=== PATIENT | male | born 1940 | race Hispanic/Latino ===

== ENCOUNTER 2016-12-05 16:36 | Emergency (ER) | payer MEDICARE ==
[2016-12-05 16:48] VITALS: TEMP 97.7
--- NOTE | 2016-12-05 16:56 | ED PDOC ---
Arrival/HPI - General Chief Complaint: Cough, Cold, Congestion Time Seen by Provider: 12/05/16 16:37 - History of Present Illness Narrative History of Present Illness (Text): 12/05/16 16:53 Patient is a 76 y/o M presenting from PMD's office, presenting with 2 week history of rhinorrhea and productive cough. Denies shortness of breath or chest pain. He reports that he saw his PMD today who sent him to the hospital for xray. Denies dyspnea on exertion, leg swelling, chest pain. Denies tobacco use. Spoke to PMD Dr. Shin who reports that patient already completed course of zpack but due to persistent cough he started patient on ceftin and cough medication and sent him to outpatient xray. PMD: Dr. Shin Past Medical History - Psychiatric Hx Psychophysiologic Disorder: No Hx Substance Use: No Family/Social History Family/Social History: No Known Family HX Smoking Status: Former Smoker Hx Alcohol Use: No Hx Substance Use: No Allergies/Home Meds Allergies/Adverse Reactions: Allergies No Known Allergies Allergy (Verified 12/05/16 16:40) Home Medications: Home Meds Medication Instructions Recorded Confirmed traMADol [Ultram] 50 mg PO QID 12/05/16 12/05/16 Review of Systems - Review of Systems Constitutional: absent: Fatigue, Weight Change, Fevers, Night Sweats Respiratory: Cough, Sputum. absent: SOB, Wheezing Cardiovascular: absent: Chest Pain, Palpitations, Edema, Calf Pain, WEINER, Orthopnea, Syncope Gastrointestinal: absent: Abdominal Pain, Constipation, Diarrhea, Nausea, Vomiting Genitourinary Male: absent: Dysuria Musculoskeletal: absent: Arthralgias Neurological: absent: Headache, Dizziness, Focal Weakness, Gait Changes, Speech Changes, Facial Droop Hemo/Lymphatic: absent: Adenopathy Psychiatric: absent: Anxiety Physical Exam Vital Signs Temp Pulse Resp BP Pulse Ox 12/05/16 17:46 76 17 134/61 97 12/05/16 16:48 97.7 F 75 18 132/52 L 96 12/05/16 16:41 97.7 F 75 19 132/52 L 100 Temperature: Afebrile Blood Pressure: Normal Pulse: Regular Respiratory Rate: Normal Appearance: Positive for: Well-Appearing, Non-Toxic, Comfortable, Other ( coughing during exam) Pain Distress: None Mental Status: Positive for: Alert and Oriented X 3 - Systems Exam Head: Present: Atraumatic, Normocephalic Pupils: Present: PERRL Extroacular Muscles: Present: EOMI Conjunctiva: Present: Normal Mouth: Present: Moist Mucous Membranes Neck: Present: Normal Range of Motion Respiratory/Chest: Present: Clear to Auscultation, Good Air Exchange. No: Respiratory Distress, Accessory Muscle Use Cardiovascular: Present: Regular Rate and Rhythm, Normal S1, S2. No: Murmurs Abdomen: No: Tenderness, Distention, Rebound, Guarding Upper Extremity: Present: Normal Inspection Lower Extremity: Present: Normal Inspection. No: Edema Neurological: Present: GCS=15, CN II-XII Intact, Speech Normal Psychiatric: Present: Alert, Oriented x 3 Medical Decision Making ED Course and Treatment: 12/05/16 17:14 Patient is presenting with productive cough and rhinorrhea x 1 week. No fever. Started on ceftin and cough medication today by PMD. Will get xray to r/o pna. 12/05/16 17:24 Cxray negative for pneumonia but shows changes consistent with COPD ( hyperinflation and peribronchial thickening with chronic changes in both lungs) but no active pulmonary disease. Patient given copy of report. Instructed to take medication as prescribed by PMD and follow-up with PMD within 2 days. - RAD Interpretation Radiology Orders: 12/05/16 16:53 CHEST TWO VIEWS (PA/LAT) [RAD] Stat Disposition/Present on Arrival - Present on Arrival Any Indicators Present on Arrival: No History of DVT/PE: No History of Uncontrolled Diabetes: No Urinary Catheter: No History of Decub. Ulcer: No History Surgical Site Infection Following: None - Disposition Have Diagnosis and Disposition been Completed?: Yes Diagnosis: Cough Disposition: HOME/ ROUTINE Disposition Time: 17:29 Patient Plan: Discharge Condition: GOOD Additional Instructions: Take medication as prescribed by Dr. Shin. Take ceftin and cough medication. Return to ED if condition worsens. Referrals: Ethan Shin MD [Primary Care Provider] - Follow up with primary
--- NOTE | 2016-12-05 17:26 | RAD ---
HISTORY: cough, rhinorrhea COMPARISON: No prior. TECHNIQUE: Chest PA and lateral FINDINGS: LUNGS: The lungs are hyperinflated and there is peribronchial thickening with chronic changes in both lungs. There is no focal consolidation. PLEURA: No significant pleural effusion identified. No pneumothorax apparent. CARDIOVASCULAR: Normal. OSSEOUS STRUCTURES: There is diffuse bone demineralization and multilevel degenerative changes in the spine. VISUALIZED UPPER ABDOMEN: Normal. OTHER FINDINGS: None. IMPRESSION: COPD. No active pulmonary disease.
[2016-12-05 17:47] VITALS: BP 134/61; PULSE 76; RESP 17; O2SAT 97
== END 2016-12-05 17:58 | disposition home or self-care (01) ==
LOC: ED 16:36
DX: R05 Cough (principal)

== ENCOUNTER 2016-12-25 13:50 | Emergency (ER) | payer MEDICARE, OTHER ==
[2016-12-25 14:07] VITALS: BMI 25.7
--- NOTE | 2016-12-25 14:42 | RAD ---
HISTORY: pysch COMPARISON: 12/05/2016 FINDINGS: LUNGS: No active pulmonary disease. PLEURA: No significant pleural effusion identified, no pneumothorax apparent. CARDIOVASCULAR: Normal. OSSEOUS STRUCTURES: No significant abnormalities. VISUALIZED UPPER ABDOMEN: Normal. OTHER FINDINGS: None. IMPRESSION: No active disease.
[2016-12-25 14:56] LABS: ADD MANUAL DIFF? NO
[2016-12-25 15:12] LABS: BASO # 0.02 K/mm3 (0.0-2.0); BASO % 0.2 % (0.0-3.0); EOS % 0.2 % (1.5-5.0); GRAN # 6.79 (1.4-6.5); GRAN % 77.1 % (50.0-68.0); HEMATOCRIT 40.6 % (42.0-52.0); LYMPH # 1.4 (1.2-3.4); LYMPH % 15.5 % (22.0-35.0); MEAN CELL VOLUME 93.1 fL (80.0-105.0); MEAN CORPUSCULAR HEMOGLOBIN 31.4 pg (25.0-35.0); MEAN CORPUSCULAR HGB CONC 33.7 g/dl (31.0-37.0); MEAN PLATELET VOLUME 11.4 fl (7.0-11.0); MONO # 0.6 (0.1-0.6); PLATELET COUNT 239 10^3/uL (120.0-450.0); RED CELL DISTRIBUTION WIDTH 13.7 % (11.5-14.5); WHITE BLOOD COUNT 8.8 10^3/ul (4.5-11.0)
[2016-12-25 15:26] VITALS: RESP 18
--- NOTE | 2016-12-25 15:29 | ED PDOC ---
Arrival/HPI - General Chief Complaint: Psychiatric Evaluation Time Seen by Provider: 12/25/16 14:10 Historian: Patient - History of Present Illness Narrative History of Present Illness (Text): 12/25/16 15:30 Ghassan Titus, a 76 year old male, presents to the emergency department complaining of being depressed. Patient reports he is "going through things with son". Patient states he has been crying at home and says "I can't take it anymore". Denies any suicidal ideation or homicidal ideation. Time/Duration: 1 week Symptom Onset: Gradual Symptom Course: Unchanged Activities at Onset: Rest Modifying Factors (Text): none Context: Home Associated Symptoms (Text): none Past Medical History - Provider Review Nursing Documentation Reviewed: Yes - Cardiac Hx Cardiac Disorders: No - Pulmonary Hx Respiratory Disorders: No - Neurological Hx Neurological Disorder: No - HEENT Hx HEENT Disorder: No - Renal Hx Renal Disorder: No - Endocrine/Metabolic Hx Endocrine Disorders: No - Hematological/Oncological Hx Blood Disorders: No - Integumentary Hx Dermatological Disorder: No - Musculoskeletal/Rheumatological Hx Musculoskeletal Disorders: Yes Hx Arthritis: Yes - Gastrointestinal Hx Gastrointestinal Disorders: No - Genitourinary/Gynecological Hx Genitourinary Disorders: No - Psychiatric Hx Psychophysiologic Disorder: No Hx Substance Use: No Family/Social History - Physician Review Nursing Documentation Reviewed: Yes Family/Social History: No Known Family HX Smoking Status: Former Smoker Hx Alcohol Use: No Hx Substance Use: No Allergies/Home Meds Allergies/Adverse Reactions: Allergies No Known Allergies Allergy (Verified 12/25/16 14:06) Home Medications: Home Meds Medication Instructions Recorded Confirmed traMADol [Ultram] 50 mg PO PRN PRN 12/05/16 12/25/16 Review of Systems - Physician Review All systems were reviewed & negative as marked: Yes - Review of Systems Eyes: absent: Vision Changes ENT: absent: Hearing Changes Psychiatric: Depression. absent: Suicidal Ideation Physical Exam Vital Signs Reviewed: Yes Vital Signs Temp Pulse Resp BP Pulse Ox 12/25/16 15:19 98.2 F 72 18 146/84 97 12/25/16 14:07 98.3 F Temperature: Afebrile - Systems Exam Head: Present: Atraumatic, Normocephalic Pupils: Present: PERRL Extroacular Muscles: Present: EOMI Conjunctiva: Present: Normal Mouth: Present: Moist Mucous Membranes Neck: Present: Normal Range of Motion Respiratory/Chest: Present: Clear to Auscultation, Good Air Exchange. No: Respiratory Distress, Accessory Muscle Use Cardiovascular: Present: Regular Rate and Rhythm, Normal S1, S2. No: Murmurs Abdomen: Present: Normal Bowel Sounds. No: Tenderness, Distention, Peritoneal Signs Upper Extremity: Present: Normal Inspection. No: Cyanosis, Edema Lower Extremity: Present: Normal Inspection. No: Edema Neurological: Present: GCS=15, CN II-XII Intact, Speech Normal Skin: Present: Warm, Dry, Normal Color. No: Rashes Psychiatric: Present: Alert, Oriented x 3, Normal Concentration, Other (tearful) Medical Decision Making ED Course and Treatment: 12/25/16 15:28 Impression: A 76 year old male with depression. Differential Diagnosis included but are not limited to: Depression Plan: -- EKG -- Chest Xray -- Labs -- Urinalysis -- Reassess and disposition Prior Visits: Notes and results from previous visits were reviewed. Progress Notes: EKG: Ordered, reviewed, and independently interpreted the EKG. Rate : 69 BPM Rhythm : NSR Interpretation : No ST/T changes Comparison : No previous EKG for comparison. Chest X-ray: Creator : Dr. Jansen, Yaron OSEI COMPARISON: 12/05/2016 FINDINGS: LUNGS: No active pulmonary disease. PLEURA: No significant pleural effusion identified, no pneumothorax apparent. CARDIOVASCULAR: Normal. OSSEOUS STRUCTURES: No significant abnormalities. VISUALIZED UPPER ABDOMEN: Normal. OTHER FINDINGS: None. IMPRESSION: No active disease. 12/25/16 16:42 Labs reviewed, WNL. EKG negative. CXR negative. Patient medically cleared for PES evaluation. 12/25/16 19:04 pt cleared by pes - Lab Interpretations Lab Results: 12/25/16 14:36 12/25/16 14:36 Lab Results 12/25/16 15:32: Urine Color Yellow, Urine Appearance Clear, Urine pH 6.0, Ur Specific [place] 1.025, Urine Protein Negative, Urine Glucose (UA) Negative, Urine Ketones Trace H, Urine Blood Negative, Urine Nitrate Negative, Urine Bilirubin Negative, Urine Urobilinogen 0.2, Ur Leukocyte Esterase Negative, Urine Opiates Screen Negative, Urine Methadone Screen Negative, Ur Barbiturates Screen Negative, Ur Phencyclidine Scrn Negative, Ur Amphetamines Screen Negative , U Benzodiazepines Scrn Negative, U Oth Cocaine Metabols Negative, U Cannabinoids Screen Negative 12/25/16 14:36: WBC 8.8, RBC 4.36, Hgb 13.7 L, Hct 40.6 L, MCV 93.1, MCH 31.4, MCHC 33.7, RDW 13.7, Plt Count 239, MPV 11.4 H, Gran % 77.1 H, Lymph % (Auto) 15.5 L, [place] % (Auto) 7.0 H, Eos % (Auto) 0.2 L, Baso % (Auto) 0.2, Gran # 6.79 H, Lymph # 1.4, [place] # 0.6, Eos # 0.0, Baso # 0.02, Sodium 139, Potassium 4.0, Chloride 102, Carbon Dioxide 28, Anion Gap 13, BUN 20, Creatinine 0.7, Est GFR ( Amer) > 60, Est GFR (Non-Af Amer) > 60, Random Glucose 88, Calcium 9.2, Total Bilirubin 0.6, AST 34, ALT 31, Alkaline Phosphatase 81, Total Protein 7.4 , Albumin 4.1, Globulin 3.3, Albumin/Globulin Ratio 1.2, Salicylates < 1 L, Acetaminophen < 10.0 L, Alcohol, Quantitative < 10 I have reviewed the lab results: Yes - RAD Interpretation Radiology Orders: 12/25/16 14:18 CHEST PORTABLE [RAD] Stat - EKG Interpretation Interpreted by ED Physician: Yes Type: 12 lead EKG - Scribe Statement The provider has reviewed the documentation as recorded by the Nataly Huber training under Jose James All medical record entries made by the Nataly were at my direction and personally dictated by me. I have reviewed the chart and agree that the record accurately reflects my personal performance of the history, physical exam, medical decision making, and the department course for this patient. I have also personally directed, reviewed, and agree with the discharge instructions and disposition. Disposition/Present on Arrival - Present on Arrival Any Indicators Present on Arrival: No History of DVT/PE: No History of Uncontrolled Diabetes: No Urinary Catheter: No History of Decub. Ulcer: No History Surgical Site Infection Following: None - Disposition Have Diagnosis and Disposition been Completed?: Yes Diagnosis: Depression Disposition: HOME/ ROUTINE Disposition Time: :04 Condition: STABLE Discharge Instructions (ExitCare): Depression (ED), Suicide Prevention for Geriatrics (ED) Additional Instructions: please follow up with your doctor and followup provided by warehouse production worker. return to er wiht worsening s ymptoms or concerns
[2016-12-25 15:56] LABS: URINE BILIRUBIN NEGATIVE (NEGATIVE); URINE BLOOD NEGATIVE (NEGATIVE); URINE KETONE TRACE mg/dL (NEGATIVE); URINE LEUKOCYTE ESTERASE NEGATIVE Leu/uL (NEGATIVE); URINE PROTEIN NEGATIVE mg/dL (<30 mg/dL); URINE UROBILINOGEN 0.2 E.U./dL (<1 E.U./dL)
[2016-12-25 16:00] LABS: URINE APPEARANCE CLEAR (CLEAR); URINE COLOR YELLOW (YELLOW); URINE GLUCOSE (UA) NEGATIVE (NEGATIVE)
[2016-12-25 16:29] LABS: ALB/GLOB RATIO 1.2 (1.1-1.8); ALKALINE PHOSPHATASE 81 U/L (38-133); ALT/SGPT 31 U/L (7-56); AST/SGOT 34 U/L (15-59); BILIRUBIN,TOTAL 0.6 mg/dL (0.2-1.3); BLOOD UREA NITROGEN 20 mg/dL (7-21); CALCIUM 9.2 mg/dL (8.4-10.5); CARBON DIOXIDE 28 mmol/L (21-33); CHLORIDE 102 mmol/L (98-107); GFR AFRICAN-AMERICAN > 60; GLUCOSE,RANDOM 88 mg/dL (70-110); SODIUM 139 mmol/L (132-148); TOTAL PROTEIN 7.4 g/dL (5.8-8.3)
[2016-12-25 19:26] VITALS: BP 148/79; PULSE 80; TEMP 98; O2SAT 98
--- NOTE | 2016-12-26 11:14 | CARD ---
APPROVED REPORT EKG Measurement Heart [id number] <Conclusion> Normal sinus rhythm Minimal voltage criteria for LVH, may be normal variant Borderline ECG
== END 2016-12-25 20:15 | disposition home or self-care (01) ==
LOC: ED 13:50
DX: F32.9 Major depressive disorder, single episode, unspecified (principal)
CPT/HCPCS: 71010; 80053; 81003; 85025; 90791; 93005; 99284; G0480